=== PATIENT | female | born 1950 ===

== ENCOUNTER 2019-07-19 07:44 | Outpatient (CLI) | payer OTHER | END 2019-07-19 07:47 | disposition home or self-care (01) | LOC: SONOGRAMA 07:44 | DX: E04.2 Nontoxic multinodular goiter (principal) ==

== ENCOUNTER 2023-02-19 05:59 | Day surgery (SDC) | payer OTHER ==
[~2023-02-19] VITALS: Ht 160 cm; Wt 63.5 kg
[~2023-02-19 05:59] MED LIST: EXELON1 EAC1; LYRICA50 MG PO; PROTONIX40 MG PO; SEROQUEL50 MG PO; ZOLOFT25 MG PO; [UNRECOGNIZED DRUG - OTHER]
== END 2023-02-19 14:25 | disposition home or self-care (01) ==
LOC: CIR.AMB 05:59
PROVIDERS: ATTEND Otolaryngology Otology & Neurotology
DX: H71.92 Unspecified cholesteatoma, left ear (principal); Z20.822 Contact with and (suspected) exposure to COVID-19; Z95.0 Presence of cardiac pacemaker